=== PATIENT | male | born 1965 | race African-American/Black ===

== ENCOUNTER 2019-11-17 02:56 | Emergency (ER) | payer OTHER ==
[~2019-11-17] VITALS: Ht 177.8 cm; Wt 136.1 kg
[2019-11-17] MEDS ORDERED: LIPITOR80 MG ORAL (02:59)
[2019-11-17] MEDS ORDERED: METFORMIN HCL5000 GM PO (02:59)
[2019-11-17] MEDS ORDERED: ASPIR 8181 MG ORAL (02:59)
[2019-11-17] MEDS ORDERED: LOSARTAN POTASS25 M1 PO (02:59)
[2019-11-17 03:06] VITALS: BP 128/76
--- NOTE | 2019-11-17 03:33 | Emergency Room Report ---
History of Present Illness General Chief Complaint: Male Urogenital Problems Source: Patient Present Illness HPI This is a 54-year-old morbidly obese male with a history of diabetes and noncompliant with medication. He presents with chief complaint of penile bleeding. Patient has recurrent balanitis and phimosis. He had surgical circumcision this afternoon. He said everything went well until tonight. He noticed some bleeding and swelling around the penis area. He could not retract the foreskin. He came by EMS. He has minimal pain. Bleeding is not controlled. Denies any fever chills but denies any nausea vomiting. No trauma. He has not urinated since after the surgery. Allergies: Coded Allergies: No Known Allergies (Unverified , 11/17/19) COVID-19 Screening Contact w/high risk pt: No Recent Travel to affected area: No Experienced COVID-19 symptoms?: No COVID-19 Testing performed TAXICAB DISPATCHER: No Patient History Past Medical History: see triage record, old chart reviewed, DM Past Surgical History: other Pertinent Family History: none Social History: Denies: smoking Immunizations: other Reviewed Nursing Documentation: PMH: Agreed; PSxH: Agreed Nursing Documentation-PMH Hx Cardiac Problems: Yes - QUAD BIPASS Hx Hypertension: Yes Hx Diabetes: Yes Review of Systems Eye: Denies: eye pain, blurred vision ENT: Denies: ear pain, nose congestion, throat swelling Respiratory: Denies: cough, shortness of breath Cardiovascular: Denies: chest pain, palpitations Gastrointestinal: Denies: abdominal pain, diarrhea, nausea, vomiting Musculoskeletal: Denies: back pain, joint pain Skin: Denies: rash Neurological: Denies: headache, numbness Endocrine: Denies: increased thirst, increased urine Hematologic/Lymphatic: Denies: easy bruising All Other Systems: negative except mentioned in HPI Physical Exam Vital Signs Date Time Temp Pulse Resp B/P (MAP) Pulse Ox O2 Delivery O2 Flow Rate FiO2 11/17/19 02:54 98.1 102 18 170/115 (133) 98 Vitals with high blood pressure Sp02 EP Interpretation: reviewed, normal General Appearance: well appearing, no apparent distress, alert, obese Head: normocephalic, atraumatic Eyes: bilateral eye PERRL, bilateral eye EOMI ENT: hearing grossly normal, normal pharynx Neck: full range of motion, supple, no meningismus Respiratory: chest non-tender, lungs clear, normal breath sounds Cardiovascular #1: regular rate, rhythm, no murmur Gastrointestinal: normal bowel sounds, non tender, no mass, no organomegaly, no bruit, non-distended Genitourinary: other - Penis: The shaft and skin is very edematous. There is bleeding and oozing from the surgical site. The gland is retracted. Musculoskeletal: back normal, normal range of motion, gait/station normal Psychiatric: mood/affect normal Procedures Additional Procedure Procedure Narrative Procedure: Bleeding hemostasis Indication: Bleeding Description: With an aid of the nurse, I try to push back the foreskin as much as possible. I had to push up the penile gland as much as possible. There appear to be a small dehiscent of the stitch on the left side right at the meatus. It is oozing blood. I evacuated as much of the clot as possible. I did place a Gipson so patient will not have any difficulty urinating. Afterward I packed the surgical site with Surgicel. This stopped the bleeding. Tolerated procedure without any problem. Medical Decision Making Diagnostic Impression: Primary Impression: Post-op bleeding Qualified Codes: N99.820 - Postprocedural hemorrhage of a genitourinary system organ or structure following a genitourinary system procedure Additional Impressions: Hypertension Qualified Codes: I10 - Essential (primary) hypertension Morbid obesity with BMI of 40.0-44.9, adult ER Course Patient with postop bleeding from a circumcision. The skin of the shaft is very edematous. The penile head after retraction as much as possible looks clean. I place a Gipson in this patient to prevent urinary retention. I explained to the patient that he will need to follow-up with urologist later on this morning. Told to place an ice pack to decrease the swelling. I see no emergent issue that need to be admitted. Last Vital Signs Date Time Temp Pulse Resp B/P (MAP) Pulse Ox O2 Delivery O2 Flow Rate FiO2 11/17/19 03:06 98.1 108 18 128/76 98 Status: improved Disposition: HOME, SELF-CARE Condition: Stable Additional Instructions: Applies ice pack to the area. Follow-up with urologist later this morning. Return if symptoms worsen. Jasson Padilla MD Nov 17, 2019 03:33
[2019-11-17 04:00] VITALS: BP 128/76
== END 2019-11-17 04:10 | disposition home or self-care (01) ==
LOC: EDBD 02:56 → EMR 03:55
DX: N99.820 Postprocedural hemorrhage of a genitourinary system organ or structure following a genitourinary system procedure (principal); I10 Essential (primary) hypertension; E66.01 Morbid (severe) obesity due to excess calories; E11.9 Type 2 diabetes mellitus without complications; Z95.1 Presence of aortocoronary bypass graft; Z68.41 Body mass index [BMI] 40.0-44.9, adult
CPT/HCPCS: 51702; 99284